=== PATIENT | male | born 1965 | race Caucasian/White ===

== ENCOUNTER → 2017-11-25 16:35 | Outpatient (CLI) | payer OTHER, SELFPAY ==
--- NOTE | 2017-11-25 16:37 | DI.RAD.S_ITS ---
PROCEDURE: XR KNEE LT 3V INDICATIONS: acute left knee pain TECHNIQUE: 3 views of the knee were acquired. COMPARISON: None. FINDINGS: Bones: No fractures or dislocations. No suspicious bony lesions. Soft tissues: No joint effusion. No suspicious soft tissue calcifications. IMPRESSION: No trauma found, source of acute knee pain not seen. Dictated by: Osito Jackson M.D. on 11/25/2017 at 16:49 Approved by: Osito Jackson M.D. on 11/25/2017 at 16:49
== END ==
PROVIDERS: Family Provider Internal Medicine; PCP Internal Medicine; Visit Provider Physician Assistant
DX: M25.562 Pain in left knee (principal)
CPT/HCPCS: 73562

== ENCOUNTER 2018-12-05 18:05 | Emergency (ER) | payer OTHER, SELFPAY ==
--- NOTE | 2018-12-05 18:13 | ED.NAVMDI ---
HPI - Nausea/Vomiting/Diarrhea General Chief complaint: Nausea/Vomiting/Diarrhea Stated complaint: Reaction to Keflex, vomit and diarrhea Time Seen by Provider: 12/05/18 18:13 Source: patient and family () Mode of arrival: ambulatory Limitations: no limitations History of Present Illness HPI Narrative: 53-year-old male comes to the emergency department with complaint of vomiting and diarrhea that started an hour and half after taking a dose of Keflex. Patient states before that he was feeling fine he went to urgent care today for a small spot on his forearm he was concerned about infection. He states he was prescribed Keflex and had the 1st dose about 2 o'clock. Now unhappy that he started having vomiting and then diarrhea patient states he has not any fevers he felt a little chilled. He denies any shortness of breath or chest pain. Denies any black or bloody stools, no issues with urination. Patient has hypertension and insulin-dependent diabetes. he has had carpal tunnel and some surgery but no abdominal surgeries. He does have a history of pancreatitis his states that is how they found out he was diabetic. Patient states that he has had Keflex once before in the past and had a similar type reaction. he denies any swelling was awake, loose oropharynx or difficulty swallowing denies any wheezing. Denies any rash or skin changes otherwise. Related Data Home Medications Medication Instructions Recorded Confirmed metformin [Glucophage] 1,000 mg PO BIDCC #0 tab 01/26/13 11/25/17 amlodipine PO 11/25/17 11/25/17 insulin aspart U-100 SUBCUT 11/25/17 11/25/17 lisinopril PO 11/25/17 11/25/17 Previous Rx's Medication Instructions Recorded insulin NPH isoph U-100 human 0 unit SQ SEE INSTRUCTIONS #10 ml 03/14/12 [Humulin N NPH U-100 Insulin] Glucose: Test Strips 0 str #100 07/03/12 prednisone 20 mg tablet 20 mg PO DAILY #7 tab 11/25/17 Allergies Allergy/AdvReac Type Severity Reaction Status Date / Time azithromycin [AZITHROMYCIN] Allergy Unknown Verified 11/25/17 15:45 cephalexin [CEPHALEXIN] Allergy Unknown Verified 11/25/17 15:45 diphenhydramine Allergy Unknown Verified 11/25/17 15:45 [DIPHENHYDRAMINE] Review of Systems Review of Systems ROS Unobtainable: All systems reviewed & are unremarkable except as noted in HPI and below Constitutional Reports chills, Denies fever(s), Denies lethargy and Denies weakness ENT Ears, Nose, Mouth, and Throat: Denies hoarseness, Denies lip swelling, Denies throat swelling and Denies tongue swelling Cardiovascular Denies chest pain, Denies edema, Denies irregular heart rhythm, Denies lightheadedness, Denies palpitations, Denies dyspnea, Denies dyspnea on exertion and Denies orthopnea Respiratory Denies change in phlegm color, Denies chest congestion, Denies cough, Denies pain on inspiration, Denies dyspnea, Denies dyspnea on exertion, Denies stridor and Denies wheezing Gastrointestinal Gastrointestinal: Denies abdominal pain, Denies melena, Denies hematochezia, Denies change in bowel habits, Reports diarrhea, Reports nausea and Denies vomiting Genitourinary Denies hematuria, Denies flank pain, Denies urinary frequency, Denies urinary hesitancy, Denies urinary incontinence and Denies urinary urgency Integumentary/Breasts Denies rash and Reports wounds ( Small spot on forearm.) Neurologic Denies weakness Endocrine Denies palpitations Allergic/Immunologic Denies lip swelling, Denies throat swelling, Denies tongue swelling and Denies wheezing [facility] Medical History (Updated 12/05/18 @ 20:28 by Kylah Boone DO) Diabetes (Chronic) Hypertension (Chronic) Social History Smoking Status: Former smoker Social History (Updated 12/05/18 @ 18:25 by Kylah Boone DO) Smoking Status: Former smoker alcohol intake: former substance use type: does not use Exam Narrative Exam Narrative: GENERAL: Alert and oriented x three, well-nourished, well-appearing male in mild distress. HEENT: Head normocephalic, atraumatic, EOMI, pupils reactive, face symmetric, moist mucous membranes, No oropharynx swelling, no swelling of the lips, no angioedema noted. NECK: Supple, full range of motion CARDIOVASCULAR: Regular rate and rhythm without murmurs, rubs or gallops. RESPIRATORY: Breath sounds equal bilaterally, no wheezes rales or rhonchi. ABDOMEN: Soft, Mild generalized tenderness. Normoactive bowel sounds all 4 quadrants. No guarding or rebound, rigidity, no mass : No CVA tenderness EXTREMITIES: Normal range of motion, no clubbing or edema. Neurovascularly intact NEUROLOGICAL: Cranial nerves II through XII grossly intact. Moving all extremities SKIN: Warm, dry, no petechiae, no rashes, patient has small ulcer 0.5cm on right forearm with slight erythema along the edge, no swelling, no discharge, non-tender to touch. Initial Vital Signs Initial Vital Signs: Vital Signs Temperature 97.2 F L 12/05/18 18:16 Pulse Rate 80 12/05/18 18:16 Respiratory Rate 20 12/05/18 18:16 Blood Pressure 114/68 12/05/18 18:16 Pulse Oximetry 100 12/05/18 18:16 Course Orders Ordered: ED Orders 12/05/18 18:15 Complete Blood Count AUTO DIFF Stat Comprehensive Metabolic Panel Urgent Procalcitonin Stat 12/05/18 18:20 XR abdomen min 2V Stat 12/05/18 19:14 CT abdomen pelvis w con Stat 12/05/18 20:07 Lactate (Lactic Acid) Stat 12/05/18 20:20 Blood Culture Stat Lipase Stat 12/05/18 21:45 Urine Microscopic Stat Discontinued Medications Diphenhydramine HCl (Benadryl) 25 mg IV NOW ONE Stop: 12/05/18 18:21 Last Admin: 12/05/18 18:28 Dose: 25 mg Famotidine (Pepcid) 20 mg in 50 mls @ 200 mls/hr IV NOW ONE Stop: 12/05/18 18:34 Last Infusion: 12/05/18 18:51 Dose: 0 mls/hr Admin: 12/05/18 18:36 Dose: 200 mls/hr Sodium Chloride (Normal Saline 0.9%) 1,000 mls @ 1,000 mls/hr IV BOLUS ONE Stop: 12/05/18 19:19 Last Infusion: 12/05/18 21:01 Dose: 0 mls/hr Admin: 12/05/18 18:30 Dose: 1,000 mls/hr Sodium Chloride (Normal Saline 0.9%) 1,000 mls @ 1,000 mls/hr IV BOLUS ONE Stop: 12/05/18 22:24 Last Infusion: 12/05/18 22:38 Dose: 0 mls/hr Admin: 12/05/18 21:55 Dose: 1,000 mls/hr Methylprednisolone (Solu-Medrol 125 Mg Vial) 125 mg IV NOW ONE Stop: 12/05/18 18:21 Last Admin: 12/05/18 18:28 Dose: 125 mg Ondansetron HCl (Zofran) 4 mg IV NOW ONE Stop: 12/05/18 18:31 Last Admin: 12/05/18 18:32 Dose: 4 mg Vital Signs - 8 hr 12/05/18 18:16 12/05/18 19:48 12/05/18 21:00 Temperature 97.2 F L 97.5 F L Pulse Rate 80 81 83 Respiratory Rate 20 28 H 17 Blood Pressure 114/68 Blood Pressure [Right Arm] 113/56 L Pulse Oximetry 100 99 95 12/05/18 21:05 12/05/18 22:38 Temperature 98.6 F Pulse Rate 86 85 Respiratory Rate 20 24 Blood Pressure 125/64 Blood Pressure [Right Arm] 133/65 Pulse Oximetry 97 100 MDM - Nausea/Vomiting/Diarrhea Lab Data Attestation: I reviewed the patient's lab results. Result diagrams: 12/05/18 18:15 12/05/18 18:15 Lab Results 12/05/18 12/05/18 12/05/18 Range/Units 18:15 18:15 18:15 WBC 14.0 H (4.5-11.0) X10^3/uL RBC 5.08 (4.5-5.9) X10^6/uL Hgb 15.0 (13.5-17.5) g/dL Hct 44.9 (41-53) % MCV 88.2 (80-100) fL MCH 29.4 (26-34) PG MCHC 33.3 (30-36) % RDW 13.8 (11.6-14.8) % Plt Count 326 (150-400) X10^3/uL Neut % (Auto) 81.3 H (50-75) % Lymph % (Auto) 14.4 L (25-40) % [place] % (Auto) 3.7 (3-14) % Eos % (Auto) 0.3 L (2-4) % Baso % (Auto) 0.3 (0-2) % Neut # (Auto) 12291 H (1762-1858) /uL Lymph # (Auto) 2000 (8490-9535) /uL [place] # (Auto) 500 (0-900) /uL Eos # (Auto) 0 (0-450) /uL Baso # (Auto) 0 (0-100) /uL Sodium 143 (137-145) mmol/L Potassium 3.9 (3.4-5.1) mmol/L Chloride 103 (98-107) mmol/L Carbon Dioxide 20 L (22-32) mmol/L BUN 35 H (9-20) mg/dL Creatinine 1.80 H (0.66-1.25) mg/dL Estimated GFR 39.4 L (>60) mL/min BUN/Creatinine Ratio 19.4 (6-22) Glucose 269 H (70-100) mg/dL Lactate (0.7-2.1) mmol/L Calcium 10.4 H (8.4-10.2) mg/dL Total Bilirubin 0.4 (0.2-1.3) mg/dL AST 42 (17-59) IU/L ALT 59 (21-72) IU/L Alkaline Phosphatase 53 (38-126) U/L Total Protein 9.9 H* (6.3-8.2) g/dL Albumin 5.4 H (3.5-5.0) g/dL Globulin 4.5 H (1.7-4.1) g/dL Albumin/Globulin Ratio 1.2 (1.0-2.8) Lipase (23-300) U/L Procalcitonin 0.10 (<0.5) ng/mL Urine RBC (0-5/HPF) Urine WBC (0-5/HPF) Calcium Oxalate Crystal Amorphous Sediment Urine Bacteria (None) Granular Casts (None) Ur Culture Indicated? 12/05/18 12/05/18 12/05/18 Range/Units 20:07 20:20 21:45 WBC (4.5-11.0) X10^3/uL RBC (4.5-5.9) X10^6/uL Hgb (13.5-17.5) g/dL Hct (41-53) % MCV (80-100) fL MCH (26-34) PG MCHC (30-36) % RDW (11.6-14.8) % Plt Count (150-400) X10^3/uL Neut % (Auto) (50-75) % Lymph % (Auto) (25-40) % [place] % (Auto) (3-14) % Eos % (Auto) (2-4) % Baso % (Auto) (0-2) % Neut # (Auto) (7468-9705) /uL Lymph # (Auto) (8997-7993) /uL [place] # (Auto) (0-900) /uL Eos # (Auto) (0-450) /uL Baso # (Auto) (0-100) /uL Sodium (137-145) mmol/L Potassium (3.4-5.1) mmol/L Chloride (98-107) mmol/L Carbon Dioxide (22-32) mmol/L BUN (9-20) mg/dL Creatinine (0.66-1.25) mg/dL Estimated GFR (>60) mL/min BUN/Creatinine Ratio (6-22) Glucose (70-100) mg/dL Lactate 2.8 H (0.7-2.1) mmol/L Calcium (8.4-10.2) mg/dL Total Bilirubin (0.2-1.3) mg/dL AST (17-59) IU/L ALT (21-72) IU/L Alkaline Phosphatase (38-126) U/L Total Protein (6.3-8.2) g/dL Albumin (3.5-5.0) g/dL Globulin (1.7-4.1) g/dL Albumin/Globulin Ratio (1.0-2.8) Lipase 121 (23-300) U/L Procalcitonin (<0.5) ng/mL Urine RBC 0-1/hpf (0-5/HPF) Urine WBC 0-1/hpf (0-5/HPF) Calcium Oxalate Crystal Occasional H Amorphous Sediment 1+ Urine Bacteria Occasional (0-1) (None) Granular Casts 0-1/lpf (None) Ur Culture Indicated? Cult not indicated 12/05/18 Range/Units 22:18 WBC (4.5-11.0) X10^3/uL RBC (4.5-5.9) X10^6/uL Hgb (13.5-17.5) g/dL Hct (41-53) % MCV (80-100) fL MCH (26-34) PG MCHC (30-36) % RDW (11.6-14.8) % Plt Count (150-400) X10^3/uL Neut % (Auto) (50-75) % Lymph % (Auto) (25-40) % [place] % (Auto) (3-14) % Eos % (Auto) (2-4) % Baso % (Auto) (0-2) % Neut # (Auto) (8638-9571) /uL Lymph # (Auto) (0469-3277) /uL [place] # (Auto) (0-900) /uL Eos # (Auto) (0-450) /uL Baso # (Auto) (0-100) /uL Sodium (137-145) mmol/L Potassium (3.4-5.1) mmol/L Chloride (98-107) mmol/L Carbon Dioxide (22-32) mmol/L BUN (9-20) mg/dL Creatinine (0.66-1.25) mg/dL Estimated GFR (>60) mL/min BUN/Creatinine Ratio (6-22) Glucose (70-100) mg/dL Lactate 1.9 (0.7-2.1) mmol/L Calcium (8.4-10.2) mg/dL Total Bilirubin (0.2-1.3) mg/dL AST (17-59) IU/L ALT (21-72) IU/L Alkaline Phosphatase (38-126) U/L Total Protein (6.3-8.2) g/dL Albumin (3.5-5.0) g/dL Globulin (1.7-4.1) g/dL Albumin/Globulin Ratio (1.0-2.8) Lipase (23-300) U/L Procalcitonin (<0.5) ng/mL Urine RBC (0-5/HPF) Urine WBC (0-5/HPF) Calcium Oxalate Crystal Amorphous Sediment Urine Bacteria (None) Granular Casts (None) Ur Culture Indicated? Point of Care Testing Stool Occult Blood Positive Urine Dip Bedside Urine Glucose Negative Bedside Urine Bilirubin - Negative Bedside Urine Ketone - Negative Urine Specific [place] 1.015 Bedside Urine Occult Blood +/- Bedside Urine pH 5.0 Bedside Urine Protein +++ 300 Bedside Urine Urobilinogen - Negative Bedside Urine Nitrite - Negative Bedside Urine Leukocytes - Negative Esterase Imaging Data Abdominal x-ray: Radiologist's impression: [address] [address] XRay Report Signed Patient: Valerio Delgadillo LMR#: [id number] : 1965Acct:[id number] Age/Sex: 53 / MDate of Service: 12/05/18 Loc: ED Accession Number: [id number] Procedure: XR abdomen min 2V Ordering Provider: Kylah Boone D.O. PROCEDURE: XR ABDOMEN MIN 2V INDICATIONS: vomiting/diarrhea TECHNIQUE: 2 views of the abdomen were acquired. COMPARISON: [facility], , ABDOMEN 1 VIEW, 10/16/2009, 11:33. FINDINGS: Surgical changes and devices: None. Bowel: No pneumoperitoneum. Nonspecific bowel gas pattern with paucity of air suggesting fluid-filled bowel. No evidence of distended bowel loops. Soft tissues: No masses; visualized solid organ contours appear normal in size. No suspicious abdominal calcifications. Bones: No suspicious bony abnormalities. IMPRESSION: Nonspecific bowel gas pattern with paucity of air-filled loops of bowel which suggest fluid filled bowel. Findings may be seen in enteritis/colitis. Dictated by: Betito Tran M.D. on 12/05/2018 at 19:28 Approved by: Betito Tran M.D. on 12/05/2018 at 19:30 CT scan - abdomen: Radiologist's impression: [address] [address] [address] Scan Report Signed Patient: Valerio Delgadillo LMR#: [id number] : 1965Acct:[id number] Age/Sex: 53 / MDate of Service: 12/05/18 Loc: ED Accession Number: [id number] Procedure: CT abdomen pelvis w con Ordering Provider: Kylah Boone D.O. PROCEDURE: CT ABDOMEN PELVIS W CON INDICATIONS: abdominal pain, vomiting, diarrhea TECHNIQUE: After the administration of intravenous contrast, 5 mm thick sections acquired from the diaphragm to the symphysis. 5 mm coronal and sagittal reformats were acquired. For radiation dose reduction, the following was used: automated exposure control, adjustment of mA and/or kV according to patient size. COMPARISON: None. FINDINGS: Image quality: Excellent. ABDOMEN: Lung bases: Lung bases are clear. Heart size is normal. Solid organs: Liver is normal in size and enhancement. Gallbladder is normal in CT appearance. Biliary system is non dilated. Pancreas enhances normally. Spleen is normal in size and enhancement. No adrenal nodules. Kidneys demonstrate normal size and enhancement, without hydronephrosis. There is however, mild bilateral perinephric stranding as well as mild peripelvic stranding more pronounced on the left. Bilateral ureters are normal in course and caliber. No evidence for acute uropathy or urolithiasis. Symmetric enhancement of the renal parenchyma. Tiny subcentimeter bilateral renal hypodensities are too small to characterize but likely represent renal cysts. Peritoneum and bowel: Bowel loops demonstrate normal wall thickness and caliber. The visualized bowel is fluid-filled throughout. Visualized appendix is normal. No free air or free fluid. Nodes and vessels: Numerous scattered mesenteric lymph nodes are more notable for number rather than size and likely reactive in etiology. No retroperitoneal or mesenteric adenopathy by size criteria. Aorta and inferior vena cava are normal in size. Miscellaneous: No ventral hernias. PELVIS: Genitourinary: Bladder wall thickness is normal. Miscellaneous: No inguinal hernias or adenopathy. Bones: No suspicious bony lesions. No vertebral body compression fractures. IMPRESSION: 1. Fluid filled bowel throughout the visualized abdomen without wall thickening or dilatation. Findings may represent nonspecific enteritis/colitis. No evidence for obstruction. 2. Mild bilateral perinephric stranding and minimal stranding surrounding the bilateral renal pelvises. Recommend correlation for infectious uropathy. Early pyelonephritis may have a similar appearance. Otherwise, no evidence for obstructive uropathy or urolithiasis. 3. Normal appendix. Dictated by: Betito Tran M.D. on 12/05/2018 at 20:47 Approved by: Betito Tran M.D. on 12/05/2018 at 20:53 [facility] Narrative Medical decision making narrative: Per patient is knocked out by a full dose of adult benadryl when describing his allergy to benadryl. Patient continues to be alert on mutiple checks. states he has had one similar episode, was seen at [facility] and had fluids and was d/c'd home. They are not 100% sure if he had keflex that day but thought he did around that time. Recheck after medications, no more emesis but patient has had episode of diarrhea. guaiac was positive. Patient is requesting oral fluids. Still feels chilled. Anion gap is 20, lactate elevated to 2.8. Protein elevated at 9.9. Creatinine is 1.8 with a BUN of 35. Patient does have known chronic kidney disease although family does note know his typical creatinine. Sent for CT abdomen and pelvis, which shows enteritis/colitis and stranding of bilateral renal pelvis. Patient ua shows, urine is negative for ketones positive pus or blood positive for protein. No nitrates or leukocyte esterase. Sent for urine culture. Patient does have an anion gap but his symptoms are rapidly improving. His glucose was only in the 200s. Lactate resolved to 1.9. Patient is feeling much better his vitals have been stable here and he is able to tolerate oral fluids. Patient and I discussed and he feels comfortable returning home. Discussed signs and symptoms to watch for. We discussed stop any Keflex. The lesion on his arm has actually been improving with bacitracin topically and I discussed continuing this. Discharge Plan Departure Patient Disposition: Home Clinical Impression: Nausea vomiting and diarrhea Discharge Date/Time: 12/05/18 22:39 Interventions: ED Discharge Assessment Last Done: 12/05/18 22:38 Instructions: DI for Vomiting -- Adult Activity Restrictions/Additional Instructions: Follow-up with primary care next 24 hours for recheck. Continue home medications as prescribed. Stop Keflex. Continue to hydrate regularly. You may take Zofran 1 tablet sublingually every 4 hours as needed. Return to the emergency department for fevers, persistent vomiting, new abdominal pain, black or bloody stools, rapidly worsening symptoms, passing out, new chest pain or shortness of breath or other new or concerning symptoms. Prescriptions: No Action amlodipine PO RF: 0 insulin aspart U-100 SUBCUT RF: 0 lisinopril PO RF: 0 prednisone 20 mg tablet 20 mg PO DAILY Qty: 7 RF: 0 insulin NPH isoph U-100 human [Humulin N NPH U-100 Insulin] 100 UNIT/1 ML suspension SQ SEE INSTRUCTIONS Qty: 10 RF: 11 Glucose: Test Strips Qty: 100 RF: 3 metformin [Glucophage] 1,000 MG tablet 1,000 mg PO BIDCC Qty: 0 RF: 0 Referrals: Micah Griffiths [Primary Care Provider] -
[2018-12-05 18:16] VITALS: BP 114/68; PULSE 80; RESP 20; TEMP 36.2; O2SAT 100
--- NOTE | 2018-12-05 18:20 | DI.RAD.S_ITS ---
PROCEDURE: XR ABDOMEN MIN 2V INDICATIONS: vomiting/diarrhea TECHNIQUE: 2 views of the abdomen were acquired. COMPARISON: [facility], , ABDOMEN 1 VIEW, 10/16/2009, 11:33. FINDINGS: Surgical changes and devices: None. Bowel: No pneumoperitoneum. Nonspecific bowel gas pattern with paucity of air suggesting fluid-filled bowel. No evidence of distended bowel loops. Soft tissues: No masses; visualized solid organ contours appear normal in size. No suspicious abdominal calcifications. Bones: No suspicious bony abnormalities. IMPRESSION: Nonspecific bowel gas pattern with paucity of air-filled loops of bowel which suggest fluid filled bowel. Findings may be seen in enteritis/colitis. Dictated by: Betito Tran M.D. on 12/05/2018 at 19:28 Approved by: Betito Tran M.D. on 12/05/2018 at 19:30
--- NOTE | 2018-12-05 18:27 | ED_ITS ---
HPI - Nausea/Vomiting/Diarrhea General Chief complaint: Nausea/Vomiting/Diarrhea Stated complaint: Reaction to Keflex, vomit and diarrhea Time Seen by Provider: 12/05/18 18:13 Source: patient and family () Mode of arrival: ambulatory Limitations: no limitations History of Present Illness HPI Narrative: 53-year-old male comes to the emergency department with complaint of vomiting and diarrhea that started an hour and half after taking a dose of Keflex. Patient states before that he was feeling fine he went to urgent care today for a small spot on his forearm he was concerned about infection. He states he was prescribed Keflex and had the 1st dose about 2 o'clock. Now unhappy that he started having vomiting and then diarrhea patient states he has not any fevers he felt a little chilled. He denies any shortness of breath or chest pain. Denies any black or bloody stools, no issues with urination. Patient has hypertension and insulin-dependent diabetes. he has had carpal tunnel and some surgery but no abdominal surgeries. He does have a history of pancreatitis his states that is how they found out he was diabetic. Patient states that he has had Keflex once before in the past and myers d a similar type reaction. he denies any swelling was awake, loose oropharynx or difficulty swallowing denies any wheezing. Denies any rash or skin changes otherwise. Related Data Home Medications Medication Instructions Recorded Confirmed metformin [Glucophage] 1,000 mg PO BIDCC #0 tab 01/26/13 11/25/17 amlodipine PO 11/25/17 11/25/17 insulin aspart U-100 SUBCUT 11/25/17 11/25/17 lisinopril PO 11/25/17 11/25/17 Previous Rx's Medication Instructions Recorded insulin NPH isoph U-100 human 0 unit SQ SEE INSTRUCTIONS #10 ml 03/14/12 [Humulin N NPH U-100 Insulin] Glucose: Test Strips 0 str #100 07/03/12 prednisone 20 mg tablet 20 mg PO DAILY #7 tab 11/25/17 Allergies Allergy/AdvReac Type Severity Reaction Status Date / Time azithromycin [AZITHROMYCIN] Allergy Unknown Verified 11/25/17 15:45 cephalexin [CEPHALEXIN] Allergy Unknown Verified 11/25/17 15:45 diphenhydramine Allergy Unknown Verified 11/25/17 15:45 [DIPHENHYDRAMINE] Review of Systems Review of Systems ROS Unobtainable: All systems reviewed & are unremarkable except as noted in HPI and below Constitutional Reports chills, Denies fever(s), Denies lethargy and Denies weakness ENT Ears, Nose, Mouth, and Throat: Denies hoarseness, Denies lip swelling, Denies throat swelling and Denies tongue swelling Cardiovascular Denies chest pain, Denies edema, Denies irregular heart rhythm, Denies lighth eadedness, Denies palpitations, Denies dyspnea, Denies dyspnea on exertion and Denies orthopnea Respiratory Denies change in phlegm color, Denies chest congestion, Denies cough, Denies pain on inspiration, Denies dyspnea, Denies dyspnea on exertion, Denies stridor and Denies wheezing Gastrointestinal Gastrointestinal: Denies abdominal pain, Denies melena, Denies hematochezia, Denies change in bowel habits, Reports diarrhea, Reports nausea and Denies vomiting Genitourinary Denies hematuria, Denies flank pain, Denies urinary frequency, Denies urinary hesitancy, Denies urinary incontinence and Denies urinary urgency Integumentary/Breasts Denies rash and Reports wounds ( Small spot on forearm.) Neurologic Denies weakness Endocrine Denies palpitations Allergic/Immunologic Denies lip swelling, Denies throat swelling, Denies tongue swelling and Denies wheezing PFSH Medical History (Updated 12/05/18 @ 20:28 by Kylah Boone DO) Diabetes (Chronic) Hypertension (Chronic) Social History Smoking Status: Former smoker Social History (Updated 12/05/18 @ 18:25 by Kylah Boone DO) Smoking Status: Former smoker alcohol intake: former substance use type: does not use Exam Narrative Exam Narrative: GENERAL: Alert and oriented x three, well-nourished, well- appearing male in mild distress. HEENT: Head normocephalic, atraumatic, EOMI, pupils reactive, face symmetric, moist mucous membranes, No oropharynx swelling, no swelling of the lips, no angioedema noted. NECK: Supple, full range of motion CARDIOVASCULAR: Regular rate and rhythm without murmurs, rubs or gallops. RESPIRATORY: Breath sounds equal bilaterally, no wheezes rales or rhonchi. ABDOMEN: Soft, Mild generalized tenderness. Normoactive bowel sounds all 4 quadrants. No guarding or rebound, rigidity, no mass : No CVA tenderness EXTREMITIES: Normal range of motion, no clubbing or edema. Neurovascularly intact NEUROLOGICAL: Cranial nerves II through XII grossly intact. Moving all extremities SKIN: Warm, dry, no petechiae, no rashes, patient has small ulcer 0.5cm on right forearm with slight erythema along the edge, no swelling, no discharge, non- tender to touch. Initial Vital Signs Initial Vital Signs: Vital Signs Temperature 97.2 F L 12/05/18 18:16 Pulse Rate 80 12/05/18 18:16 Respiratory Rate 20 12/05/18 18:16 Blood Pressure 114/68 12/05/18 18:16 Pulse Oximetry 100 12/05/18 18:16 Course Orders Ordered: ED Orders 12/05/18 18:15 Complete Blood Count AUTO DIFF Stat Comprehensive Metabolic Panel Urgent Procalcitonin Stat 12/05/18 18:20 XR abdomen min 2V Stat 12/05/18 19:14 CT abdomen pelvis w con Stat 12/05/18 20:07 Lactate (Lactic Acid) Stat 12/05/18 20:20 Blood Culture Stat Lipase Stat 12/05/18 21:45 Urine Microscopic Stat Discontinued Medications Diphenhydramine HCl (Benadryl) 25 mg IV NOW ONE Stop: 12/05/18 18:21 Last Admin: 12/05/18 18:28 Dose: 25 mg Famotidine (Pepcid) 20 mg in 50 mls @ 200 mls/hr IV NOW ONE Stop: 12/05/18 18:34 Last Infusion: 12/05/18 18:51 Dose: 0 mls/hr Admin: 12/05/18 18:36 Dose: 200 mls/hr Sodium Chloride (Normal Saline 0.9%) 1,000 mls @ 1,000 mls/hr IV BOLUS ONE Stop: 12/05/18 19:19 Last Infusion: 12/05/18 21:01 Dose: 0 mls/hr Admin: 12/05/18 18:30 Dose: 1,000 mls/hr Sodium Chloride (Normal Saline 0.9%) 1,000 mls @ 1,000 mls/hr IV BOLUS ONE Stop: 12/05/18 22:24 Last Infusion: 12/05/18 22:38 Dose: 0 mls/hr Admin: 12/05/18 21:55 Dose: 1,000 mls/hr Methylprednisolone (Solu-Medrol 125 Mg Vial) 125 mg IV NOW ONE Stop: 12/05/18 18:21 Last Admin: 12/05/18 18:28 Dose: 125 mg Ondansetron HCl (Zofran) 4 mg IV NOW ONE Stop: 12/05/18 18:31 Last Admin: 12/05/18 18:32 Dose: 4 mg Vital Signs - 8 hr 12/05/18 18:16 12/05/18 19:48 12/05/18 21:00 Temperature 97.2 F L 97.5 F L Pulse Rate 80 81 83 Respiratory Rate 20 28 H 17 Blood Pressure 114/68 Blood Pressure [Right Arm] 113/56 L Pulse Oximetry 100 99 95 12/05/18 21:05 12/05/18 22:38 Temperature 98.6 F Pulse Rate 86 85 Respiratory Rate 20 24 Blood Pressure 125/64 Blood Pressure [Right Arm] 133/65 Pulse Oximetry 97 100 MDM - Nausea/Vomiting/Diarrhea Lab Data Attestation: I reviewed the patient's lab results. Result diagrams: 12/05/18 18:15 12/05/18 18:15 Lab Results 12/05/18 12/05/18 12/05/18 Range/Units 18:15 18:15 18:15 WBC 14.0 H (4.5-11.0) X10^3/uL RBC 5.08 (4.5-5.9) X10^6/uL Hgb 15.0 (13.5-17.5) g/dL Hct 44.9 (41-53) % MCV 88.2 (80-100) fL MCH 29.4 (26-34) PG MCHC 33.3 (30-36) % RDW 13.8 (11.6-14.8) % Plt Count 326 (150-400) X10^3/uL Neut % (Auto) 81.3 H (50-75) % Lymph % (Auto) 14.4 L (25-40) % [place] % (Auto) 3.7 (3-14) % Eos % (Auto) 0.3 L (2-4) % Baso % (Auto) 0.3 (0-2) % Neut # (Auto) 14022 H (7925-8853) /uL Lymph # (Auto) 2000 (1689-1462) /uL [place] # (Auto) 500 (0-900) /uL Eos # (Auto) 0 (0-450) /uL Baso # (Auto) 0 (0-100) /uL Sodium 143 (137-145) mmol/L Potassium 3.9 (3.4-5.1) mmol/L Chloride 103 (98-107) mmol/L Carbon Dioxide 20 L (22-32) mmol/L BUN 35 H (9-20) mg/dL Creatinine 1.80 H (0.66-1.25) mg/dL Estimated GFR 39.4 L (>60) mL/min BUN/Creatinine Ratio 19.4 (6-22) Glucose 269 H (70-100) mg/dL Lactate (0.7-2.1) mmol/L Calcium 10.4 H (8.4-10.2) mg/dL Total Bilirubin 0.4 (0.2-1.3) mg/dL AST 42 (17-59) IU/L ALT 59 (21-72) IU/L Alkaline Phosphatase 53 (38-126) U/L Total Protein 9.9 H* (6.3-8.2) g/dL Albumin 5.4 H (3.5-5.0) g/dL Globulin 4.5 H (1.7-4.1) g/dL Albumin/Globulin Ratio 1.2 (1.0-2.8) Lipase (23-300) U/L Procalcitonin 0.10 (<0.5) ng/mL Urine RBC (0-5/HPF) Urine WBC (0-5/HPF) Calcium Oxalate Crystal Amorphous Sediment Urine Bacteria (None) Granular Casts (None) Ur Culture Indicated? 12/05/18 12/05/18 12/05/18 Range/Units 20:07 20:20 21:45 WBC (4.5-11.0) X10^3/uL RBC (4.5-5.9) X10^6/uL Hgb (13.5-17.5) g/dL Hct (41-53) % MCV (80-100) fL MCH (26-34) PG MCHC (30-36) % RDW (11.6-14.8) % Plt Count (150-400) X10^3/uL Neut % (Auto) (50-75) % Lymph % (Auto) (25-40) % [place] % (Auto) (3-14) % Eos % (Auto) (2-4) % Baso % (Auto) (0-2) % Neut # (Auto) (8843-7844) /uL Lymph # (Auto) (5540-2755) /uL [place] # (Auto) (0-900) /uL Eos # (Auto) (0-450) /uL Baso # (Auto) (0-100) /uL Sodium (137-145) mmol/L Potassium (3.4-5.1) mmol/L Chloride (98-107) mmol/L Carbon Dioxide (22-32) mmol/L BUN (9-20) mg/dL Creatinine (0.66-1.25) mg/dL Estimated GFR (>60) mL/min BUN/Creatinine Ratio (6-22) Glucose (70-100) mg/dL Lactate 2.8 H (0.7-2.1) mmol/L Calcium (8.4-10.2) mg/dL Total Bilirubin (0.2-1.3) mg/dL AST (17-59) IU/L ALT (21-72) IU/L Alkaline Phosphatase (38-126) U/L Total Protein (6.3-8.2) g/dL Albumin (3.5-5.0) g/dL Globulin (1.7-4.1) g/dL Albumin/Globulin Ratio (1.0-2.8) Lipase 121 (23-300) U/L Procalcitonin (<0.5) ng/mL Urine RBC 0-1/hpf (0-5/HPF) Urine WBC 0-1/hpf (0-5/HPF) Calcium Oxalate Crystal Occasional H Amorphous Sediment 1+ Urine Bacteria Occasional (0-1) (None) Granular Casts 0-1/lpf (None) Ur Culture Indicated? Cult not indicated 12/05/18 Range/Units 22:18 WBC (4.5-11.0) X10^3/uL RBC (4.5-5.9) X10^6/uL Hgb (13.5-17.5) g/dL Hct (41-53) % MCV (80-100) fL MCH (26-34) PG MCHC (30-36) % RDW (11.6-14.8) % Plt Count (150-400) X10^3/uL Neut % (Auto) (50-75) % Lymph % (Auto) (25-40) % [place] % (Auto) (3-14) % Eos % (Auto) (2-4) % Baso % (Auto) (0-2) % Neut # (Auto) (4127-3574) /uL Lymph # (Auto) (1374-8507) /uL [place] # (Auto) (0-900) /uL Eos # (Auto) (0-450) /uL Baso # (Auto) (0-100) /uL Sodium (137-145) mmol/L Potassium (3.4-5.1) mmol/L Chloride (98-107) mmol/L Carbon Dioxide (22-32) mmol/L BUN (9-20) mg/dL Creatinine (0.66-1.25) mg/dL Estimated GFR (>60) mL/min BUN/Creatinine Ratio (6-22) Glucose (70-100) mg/dL Lactate 1.9 (0.7-2.1) mmol/L Calcium (8.4-10.2) mg/dL Total Bilirubin (0.2-1.3) mg/dL AST (17-59) IU/L ALT (21-72) IU/L Alkaline Phosphatase (38-126) U/L Total Protein (6.3-8.2) g/dL Albumin (3.5-5.0) g/dL Globulin (1.7-4.1) g/dL Albumin/Globulin Ratio (1.0-2.8) Lipase (23-300) U/L Procalcitonin (<0.5) ng/mL Urine RBC (0-5/HPF) Urine WBC (0-5/HPF) Calcium Oxalate Crystal Amorphous Sediment Urine Bacteria (None) Granular Casts (None) Ur Culture Indicated? Point of Care Testing Stool Occult Blood Positive Urine Dip Bedside Urine Glucose Negative Bedside Urine Bilirubin - Negative Bedside Urine Ketone - Negative Urine Specific [place] 1.015 Bedside Urine Occult Blood +/- Bedside Urine pH 5.0 Bedside Urine Protein +++ 300 Bedside Urine Urobilinogen - Negative Bedside Urine Nitrite - Negative Bedside Urine Leukocytes - Negative Esterase Imaging Data Abdominal x-ray: Radiologist's impression: [address] [id number] XRay Report Signed Patient: Valerio Delgadillo LMR#: [id number] : 1965Acct:[id number] Age/Sex: 53 / MDate of Service: 12/05/18 Loc: ED Accession Number: [id number] Procedure: XR abdomen min 2V Ordering Provider: Kylah Boone D.O. PROCEDURE: XR ABDOMEN MIN 2V INDICATIONS: vomiting/diarrhea TECHNIQUE: 2 views of the abdomen were acquired. COMPARISON: [facility], , ABDOMEN 1 VIEW, 10/16/2009, 11:33. FINDINGS: Surgical changes and devices: None. Bowel: No pneumoperitoneum. Nonspecific bowel gas pattern with paucity of air suggesting fluid-filled bowel. No evidence of distended bowel loops. Soft tissues: No masses; visualized solid organ contours appear normal in size. No suspicious abdominal calcifications. Bones: No suspicious bony abnormalities. IMPRESSION: Nonspecific bowel gas pattern with paucity of air-filled loops of bowel which suggest fluid filled bowel. Findings may be seen in enteritis/colitis. Dictated by: Betito Tran M.D. on 12/05/2018 at 19:28 Approved by: Betito Tran M.D. on 12/05/2018 at 19:30 CT scan - abdomen: Radiologist's impression: [address] [address] [address] Scan Report Signed Patient: Valerio Delgadillo LMR#: [id number] : 1965Acct:[id number] Age/Sex: 53 / MDate of Service: 12/05/18 Loc: ED Accession Number: [id number] Procedure: CT abdomen pelvis w con Ordering Provider: Kylah Boone D.O. PROCEDURE: CT ABDOMEN PELVIS W CON INDICATIONS: abdominal pain, vomiting, diarrhea TECHNIQUE: After the administration of intravenous contrast, 5 mm thick sections acquired from the diaphragm to the symphysis. 5 mm coronal and sagittal reformats were acquired. For radiation dose reduction, the following was used: automated exposure control, adjustment of mA and/or kV according to patient size. COMPARISON: None. FINDINGS: Image quality: Excellent. ABDOMEN: Lung bases: Lung bases are clear. Heart size is normal. Solid organs: Liver is normal in size and enhancement. Gallbladder is normal in CT appearance. Biliary system is non dilated. Pancreas enhances normally. Spleen is normal in size and enhancement. No adrenal nodules. Kidneys demonstrate normal size and enhancement, without hydronephrosis. There is however, mild bilateral perinephric stranding as well as mild peripelvic stranding more pronounced on the left. Bilateral ureters are normal in course and caliber. No evidence for acute uropathy or urolithiasis. Symmetric enhancement of the renal parenchyma. Tiny subcentimeter bilateral renal hypodensities are too small to characterize but likely represent renal cysts. Peritoneum and bowel: Bowel loops demonstrate normal wall thickness and caliber. The visualized bowel is fluid-filled throughout. Visualized appendix is normal. No free air or free fluid. Nodes and vessels: Numerous scattered mesenteric lymph nodes are more notable for number rather than size and likely reactive in etiology. No retroperitoneal or mesenteric adenopathy by size criteria. Aorta and inferior vena cava are normal in size. Miscellaneous: No ventral hernias. PELVIS: Genitourinary: Bladder wall thickness is normal. Miscellaneous: No inguinal hernias or adenopathy. Bones: No suspicious bony lesions. No vertebral body compression fractures. IMPRESSION: 1. Fluid filled bowel throughout the visualized abdomen without wall thickening or dilatation. Findings may represent nonspecific enteritis/colitis. No evidence fo r obstruction. 2. Mild bilateral perinephric stranding and minimal stranding surrounding the bilateral renal pelvises. Recommend correlation for infectious uropathy. Early pyelonephritis may have a similar appearance. Otherwise, no evidence for obstructive uropathy or urolithiasis. 3. Normal appendix. Dictated by: Betito Tran M.D. on 12/05/2018 at 20:47 Approved by: Betito Tran M.D. on 12/05/2018 at 20:53 [facility] Narrative Medical decision making narrative: Per patient is knocked out by a full dose of adult benadryl when describing his allergy to benadryl. Patient continues to be alert on mutiple checks. states he has had one similar episode, was seen at [facility] and had fluids and was d/c'd home. They are not 100% sure if he had keflex that day but thought he did around that time. Recheck after medications, no more emesis but patient has had episode of diarrhea. guaiac was positive. Patient is requesting oral fluids. Still feels chilled. Anion gap is 20, lactate elevated to 2.8. Protein elevated at 9.9. Creatinine is 1.8 with a BUN of 35. Patient does have known chronic kidney disease although family does note know his typical creatinine. Sent for CT abdomen and pelvis, which shows enteritis/colitis and stranding of bilateral renal pelvis. Patient ua shows, urine is negative for ketones positive pus or blood positive for protein. No nitrates or leukocyte esterase. Sent for urine culture. Patient does have an anion gap but his symptoms are rapidly improving. His glucose was only in the 200s. Lactate resolved to 1.9. Patient is feeling much better his vitals have been stable here and he is able to tolerate oral fluids. Patient and I discussed and he feels comfortable returning home. Discussed signs and symptoms to watch for. We discussed stop any Keflex. The lesion on his arm has actually been improving with bacitracin topically and I discussed continuing this. Discharge Plan Departure Patient Disposition: Home Clinical Impression: Nausea vomiting and diarrhea Discharge Date/Time: 12/05/18 22:39 Interventions: ED Discharge Assessment Last Done: 12/05/18 22:38 Instructions: DI for Vomiting -- Adult Activity Restrictions/Additional Instructions: Follow-up with primary care next 24 hours for recheck. Continue home medications as prescribed. Stop Keflex. Continue to hydrate regularly. You may take Zofran 1 tablet sublingually every 4 hours as needed. Return to the emergency department for fevers, persistent vomiting, new abdominal pain, black or bloody stools, rapidly worsening symptoms, passing out, new chest pain or shortness of breath or other new or concerning symptoms. Prescriptions: No Action amlodipine PO RF: 0 insulin aspart U-100 SUBCUT RF: 0 lisinopril PO RF: 0 prednisone 20 mg tablet 20 mg PO DAILY Qty: 7 RF: 0 insulin NPH isoph U-100 human [Humulin N NPH U-100 Insulin] 100 UNIT/1 ML suspension SQ SEE INSTRUCTIONS Qty: 10 RF: 11 Glucose: Test Strips Qty: 100 RF: 3 metformin [Glucophage] 1,000 MG tablet 1,000 mg PO BIDCC Qty: 0 RF: 0 Referrals: Micah Griffiths [Primary Care Provider] -
[2018-12-05] MEDS: diphenhydrAMINE 50 MG/ML VIAL 25 MG IV (18:28)
[2018-12-05] MEDS: methylPREDNISolone 125 MG/2 ML VIAL IV (18:28)
[2018-12-05] MEDS: SODIUM CHLORIDE 0.9% 1,000 ML 1000 ML IV ×2 (18:30→21:55)
[2018-12-05 18:32] LABS: Add Manual Diff / Slide Review NO; Basophils Absolute Auto 0 /uL (0-100); Basophils Percent Auto 0.3 % (0-2); Eosinophils Absolute Auto 0 /uL (0-450); Eosinophils Percent Auto 0.3 % (2-4); Hematocrit 44.9 % (41-53); Lymphocytes Absolute Auto 2000 /uL (1100-4500); Lymphocytes Percent Auto 14.4 % (25-40); Mean Corpuscular HGB Conc 33.3 % (30-36); Mean Corpuscular Hemoglobin 29.4 PG (26-34); Mean Corpuscular Volume 88.2 fL (80-100); Monocytes Absolute Auto 500 /uL (0-900); Monocytes Percent Auto 3.7 % (3-14); Neutrophils Absolute Auto 11400 /uL (1500-7000); Neutrophils Percent Auto 81.3 % (50-75); Platelet Count 326 X10^3/uL (150-400); Red Blood Cell Count 5.08 X10^6/uL (4.5-5.9); Red Cell Distribution Width 13.8 % (11.6-14.8)
[2018-12-05] MEDS: ONDANSETRON 4 MG/2 ML INJ IV (18:32)
[2018-12-05] MEDS: FAMOTIDINE 20 MG/50 ML PIGGYBACK 200 MG IV (18:36)
[2018-12-05 18:41] LABS: Alanine Aminotransferase 59 IU/L (21-72); Albumin 5.4 g/dL (3.5-5.0); Albumin Globulin Ratio 1.2 (1.0-2.8); Alkaline Phosphatase 53 U/L (38-126); Aspartate Aminotransferase 42 IU/L (17-59); BUN Creatinine Ratio 19.4 (6-22); Bilirubin Total 0.4 mg/dL (0.2-1.3); Blood Urea Nitrogen 35 mg/dL (9-20); Calcium 10.4 mg/dL (8.4-10.2); Carbon Dioxide 20 mmol/L (22-32); Chloride 103 mmol/L (98-107); Estimated Glomerular Filt Rate 39.4 mL/min (>60); Globulin 4.5 g/dL (1.7-4.1); Glucose 269 mg/dL (70-100); HEMOLYSIS < 15 (0-50); Potassium 3.9 mmol/L (3.4-5.1); Sodium 143 mmol/L (137-145)
[2018-12-05 19:05] LABS: Total Protein 9.9 g/dL (6.3-8.2)
--- NOTE | 2018-12-05 19:14 | DI.CT.S_ITS ---
PROCEDURE: CT ABDOMEN PELVIS W CON INDICATIONS: abdominal pain, vomiting, diarrhea TECHNIQUE: After the administration of intravenous contrast, 5 mm thick sections acquired from the diaphragm to the symphysis. 5 mm coronal and sagittal reformats were acquired. For radiation dose reduction, the following was used: automated exposure control, adjustment of mA and/or kV according to patient size. COMPARISON: None. FINDINGS: Image quality: Excellent. ABDOMEN: Lung bases: Lung bases are clear. Heart size is normal. Solid organs: Liver is normal in size and enhancement. Gallbladder is normal in CT appearance. Biliary system is non dilated. Pancreas enhances normally. Spleen is normal in size and enhancement. No adrenal nodules. Kidneys demonstrate normal size and enhancement, without hydronephrosis. There is however, mild bilateral perinephric stranding as well as mild peripelvic stranding more pronounced on the left. Bilateral ureters are normal in course and caliber. No evidence for acute uropathy or urolithiasis. Symmetric enhancement of the renal parenchyma. Tiny subcentimeter bilateral renal hypodensities are too small to characterize but likely represent renal cysts. Peritoneum and bowel: Bowel loops demonstrate normal wall thickness and caliber. The visualized bowel is fluid-filled throughout. Visualized appendix is normal. No free air or free fluid. Nodes and vessels: Numerous scattered mesenteric lymph nodes are more notable for number rather than size and likely reactive in etiology. No retroperitoneal or mesenteric adenopathy by size criteria. Aorta and inferior vena cava are normal in size. Miscellaneous: No ventral hernias. PELVIS: Genitourinary: Bladder wall thickness is normal. Miscellaneous: No inguinal hernias or adenopathy. Bones: No suspicious bony lesions. No vertebral body compression fractures. IMPRESSION: 1. Fluid filled bowel throughout the visualized abdomen without wall thickening or dilatation. Findings may represent nonspecific enteritis/colitis. No evidence for obstruction. 2. Mild bilateral perinephric stranding and minimal stranding surrounding the bilateral renal pelvises. Recommend correlation for infectious uropathy. Early pyelonephritis may have a similar appearance. Otherwise, no evidence for obstructive uropathy or urolithiasis. 3. Normal appendix. Dictated by: Betito Tran M.D. on 12/05/2018 at 20:47 Approved by: Betito Tran M.D. on 12/05/2018 at 20:53
[2018-12-05 19:48] VITALS: BP 113/56; PULSE 81; RESP 28; TEMP 36.4; O2SAT 99
[2018-12-05 20:25] LABS: Lactate (Lactic Acid) 2.8 mmol/L (0.7-2.1)
[2018-12-05 20:40] LABS: Lipase 121 U/L (23-300)
[2018-12-05 21:00] VITALS: PULSE 83; RESP 17; O2SAT 95
[2018-12-05 21:05] VITALS: BP 133/65; PULSE 86; RESP 20; O2SAT 97
[2018-12-05 22:02] LABS: Amorphous Sediment Urine 1+; Bacteria Urine Occasional (0-1); Calcium Oxalate Crystals Urine Occasional; Culture Indicated Urine Cult Not Indicated; Granular Casts Urine 0-1/LPF; RBC Urine 0-1/HPF (0-5/HPF); WBC Urine 0-1/HPF (0-5/HPF)
[2018-12-05 22:11] LABS: Reflexed Lactate in 2 Hours Y
[2018-12-05 22:38] VITALS: BP 125/64; PULSE 85; RESP 24; TEMP 37; O2SAT 100
[2018-12-05 22:39] LABS: Lactate 2HR (Lactic Acid Rflx) 1.9 mmol/L (0.7-2.1)
== END 2018-12-05 22:39 | disposition home or self-care (01) ==
PROVIDERS: Emergency Provider Emergency Medicine; Family Provider Family Medicine; PCP Family Medicine
DX: R11.2 Nausea with vomiting, unspecified (principal); R19.7 Diarrhea, unspecified
CPT/HCPCS: 36415; 36591; 74019; 74177; 80053; 81003; 81015; 82272; 83605; 83690; 84145; 85025; 87040; 96361; 96374; 96375; 99283; 99284; J1200; J2405; J2930; Q9967